=== PATIENT | female | born 1995 | race Caucasian/White ===

== ENCOUNTER 2022-08-17 08:14 | Emergency (ER) | payer OTHER ==
[~2022-08-17] VITALS: Ht 162.6 cm; Wt 46.7 kg
[2022-08-17] MEDS ORDERED: KETOROLAC TROMETHAMINE INJ 30 MG/ML VIAL IV ONE (08:30)
[2022-08-17] MEDS ORDERED: KETOROLAC TROMETHAMINE 15 MG/ML VIAL ONE (08:31)
[2022-08-17 08:47] LABS: BASOPHILS # (AUTO) 0.1 K/uL (0.0-0.2); BASOPHILS % (AUTO) 0.4 % (0.0-2.0); EOSINOPHILS % (AUTO) 1.8 % (0.0-6.0); HEMATOCRIT 39 % (33-45); HEMOGLOBIN 13.1 g/dL (11.5-14.8); LYMPHOCYTES # (AUTO) 1.9 K/uL (0.8-4.8); LYMPHOCYTES % (AUTO) 14.9 % (20.0-44.0); MEAN CORPUSCULAR HGB CONC 33 g/dl (31.0-36.0); MEAN CORPUSCULAR VOLUME 96 fL (82-100); MONOCYTES # (AUTO) 1.1 K/uL (0.1-1.30); MONOCYTES % (AUTO) 8.3 % (2.0-12.0); NEUTROPHILS # (AUTO) 9.5 K/uL (1.8-8.9); NEUTROPHILS % (AUTO) 74.6 % (43.0-81.0); PLATELET COUNT (AUTO) 213 K/uL (150-450); RED BLOOD CELL COUNT(AUTO) 4.12 MIL/uL (4.0-5.2); WHITE BLOOD COUNT (AUTO) 12.7 K/uL (4.3-11.0)
[2022-08-17 08:54] LABS: CARBON DIOXIDE 30 mmol/L (21-32); CHLORIDE 104 mmol/L (98-107); CREATININE 0.8 mg/dL (0.6-1.3); GLUCOSE 66 mg/dL (74-106); POTASSIUM 4.2 mmol/L (3.5-5.1); SODIUM SERUM 139 mmol/L (136-145); UREA NITROGEN, BLOOD 14 mg/dL (7-18)
[2022-08-17 09:02] LABS: C-REACTIVE PROTEIN < 0.2 mg/dL (0.0-0.9)
[2022-08-17] MEDS ORDERED: IV NS 0.9% 250 ML IV ONE (09:10)
[2022-08-17] MEDS ORDERED: IOHEXOL-300 100 ML VIAL IV ONE (09:10)
--- NOTE | 2022-08-17 09:15 | NUR ---
wheeled patient via gurney accompanied by [facility] for ct scan.
[2022-08-17] MEDS ORDERED: AMOX-430 PO (10:50)
[2022-08-17 11:31] VITALS: BP 120/66
--- NOTE | 2022-08-17 11:31 | NUR ---
Patient discharged to home in stable condition. Written and verbal after care instructions given. Patient verbalizes understanding of instruction.IV removed. Catheter intact and site benign. Pressure and 4x4 applied to site. No bleeding noted.
== END 2022-08-17 11:31 | disposition home or self-care (01) ==
LOC: ER 08:14
DX: R68.84 Jaw pain (principal); R22.0 Localized swelling, mass and lump, head; F17.200 Nicotine dependence, unspecified, uncomplicated; Z60.2 Problems related to living alone; Z79.899 Other long term (current) drug therapy
CPT/HCPCS: 99285; 96374; 70487; 85025; 80048; 84703; 85652; 36415; 86140; J7050; Q9967; J1885